=== PATIENT | male | born 1980 | race Caucasian/White ===

== ENCOUNTER 2018-05-23 15:30 | Inpatient (IN) | payer OTHER ==
[2018-05-23 16:41] VITALS: BMI 26.7
--- NOTE | 2018-05-23 17:44 | HP ---
COWS - Scale Resting Pulse: 0= IN 80 or Below Sweatin= Chills/Flushing Restless Observation: 1= Difficult to Sit Still Pupil Size: 1= Pupils >than Normal Bone or Joint Aches: 1= Mild Discomfort Runny Nose/ Eye Tearin= Nasal Congestion GI Upset > 30mins: 2= Nausea/Diarrhea Tremor Observation: 1= Tremor [place], Not Seen Yawning Observation: 1= 1-2x During Session Anxiety or Irritability: 1=Feels Anxious/Irritable Goose Flesh Skin: 3=Piloerection COWS Score: 13 CIWA Score - Admission Criteria [facility]ASAS Guidelines: Admission for Medically Managed Detox: Requires at least one of the followin. CIWA greater than 12 2. Seizures within the past 24 hours 3. Delirium tremens within the past 24 hours 4. Hallucinations within the past 24 hours 5. Acute intervention needed for co occurring medical disorder 6. Acute intervention needed for co occurring psychiatric disorder 7. Severe withdrawal that cannot be handled at a lower level of care (continued vomiting, continued diarrhea, abnormal vital signs) requiring intravenous medication and/or fluids 8. Admission ROS [facility] Chief Complaint: WITHDRAWAL SYMPTOMS Allergies/Adverse Reactions: Allergies Allergy/AdvReac Type Severity Reaction Status Date / Time No Known Drug Allergies Allergy Verified 09/09/11 16:58 History of Present Illness: 37 Y.O. MAN WITH HISTORY OF HEROIN DEPENDENCE IS HERE SEEKING DETOX SERVICES. HE REPORTED HE LAST COMPLETED DETOX AT [facility] 3 MONTHS AGO. DOES NOT HAVE AN EXTENSIVE PERIOD OF DRUG ABSTINENCE. PT. REPORTS HE IS MANDATED BY [facility] TO COMPLETE TREATMENT. Exam Limitations: No Limitations - Ebola screening Have you traveled outside of the country in the last 21 days: No (N) Have you had contact with anyone from an Ebola affected area: No Have you been sick,other than usual withdrawal symptoms: No Do you have a fever: No - Review of Systems Constitutional: Chills, Loss of Appetite, Changes in sleep, Unintentional Wgt. Loss EENT: reports: Blurred Vision, Tearing Respiratory: reports: No Symptoms reported Cardiac: reports: Lightheadedness GI: reports: Diarrhea, Abdominal cramping Musculoskeletal: reports: No Symptoms Reported Integumentary: reports: No Symptoms Reported Neuro: reports: No Symptoms reported Endocrine: reports: No Symptoms Reported Hematology: reports: No Symptoms Reported Psychiatric: reports: Judgement Intact, Mood/Affect Appropiate, other (BIPOLAR) Other Systems: Reviewed and Negative Patient History - Patient Medical History Hx Anemia: No Hx Asthma: No Hx Chronic Obstructive Pulmonary Disease (COPD): No Hx Cancer: No Hx Cardiac Disorders: No Hx Congestive Heart Failure: No Hx Hypertension: No Hx Hypercholesterolemia: No Hx Pacemaker: No HX Cerebrovascular Accident: No Hx Seizures: No Hx Dementia: No Hx Diabetes: No Hx Gastrointestinal Disorders: Yes (GERD ) Hx Liver Disease: No Hx Genitourinary Disorders: No Hx Sexually Transmitted Disorders: No Hx Renal Disease (ESRD): No Hx Thyroid Disease: No Hx Human Immunodeficiency Virus (HIV): No Hx Hepatitis C: No Hx Depression: Yes Hx Suicide Attempt: No Hx Bipolar Disorder: Yes Hx Schizophrenia: No - Patient Surgical History Past Surgical History: No Hx Neurologic Surgery: No Hx Cataract Extraction: No Hx Cardiac Surgery: No Hx Lung Surgery: No Hx Breast Surgery: No Hx Breast Biopsy: No Hx Abdominal Surgery: No Hx Appendectomy: No Hx Cholecystectomy: No Hx Genitourinary Surgery: No Hx Section: No Hx Orthopedic Surgery: No Anesthesia Reaction: No - PPD History Previous Implant?: Yes Documented Results: Negative w/o proof Implanted On Prior R Admission?: Yes Date: 09/11/11 PPD to be Administered?: Yes - Reproductive History Patient is a Female of Child Bearing Age (11 -55 yrs old): No - Smoking Cessation Smoking history: Current every day smoker Have you smoked in the past 12 months: Yes Aproximately how many cigarettes per day: 6 Hx Chewing Tobacco Use: No Initiated information on smoking cessation: Yes 'Breaking Loose' booklet given: 05/23/18 - Substance & Tx. History Hx Alcohol Use: No Hx Substance Use: Yes Substance Use Type: Heroin Hx Substance Use Treatment: Yes (DETOX: [facility] 01/2018) - Substances Abused Heroin Route: Injection Frequency: Daily Amount used: 10 BAGS Age of first use: 33 Date of Last Use: 05/23/18 Family Disease History - Family Disease History Family Disease History: Diabetes: Mother, Heart Disease: Mother Admission Physical Exam BHS - Vital Signs Vital Signs: Vital Signs - 24 hr 05/23/18 16:38 Temperature 97.9 F Pulse Rate 80 Respiratory 20 Rate Blood Pressure 140/82 - Physical General Appearance: Yes: Irritable, Anxious HEENTM: Yes: Hearing grossly Normal, Normocephalic, Normal Voice Respiratory: Yes: Chest Non-Tender, Lungs Clear, Normal Breath Sounds Neck: Yes: No masses,lesions,Nodules Breast: Yes: Breast Exam Deferred Cardiology: Yes: Regular Rhythm, Regular Rate Abdominal: Yes: Normal Bowel Sounds, Non Tender Genitourinary: Yes: Other (NO COMPLAINTS REPORTED) Back: Yes: Normal Inspection Musculoskeletal: Yes: full range of Motion, Gait Steady, Pelvis Stable Extremities: Yes: Normal Capillary Refill, Normal Inspection, Normal Range of Motion, Non-Tender Neurological: Yes: Alert, Normal Mood/Affect, Normal Response Integumentary: Yes: Normal Color, Dry, Warm, Track Ortiz Lymphatic: Yes: Within Normal Limits - Diagnostic (1) GERD (gastroesophageal reflux disease) Current Visit: Yes Status: Chronic (2) Uncomplicated opioid dependence Current Visit: Yes Status: Chronic (3) Nicotine dependence Current Visit: Yes Status: Chronic Cleared for Admission [facility] - Detox or Rehab [facility] Level of Care: Medically Managed Detox Regimen/Protocol: Methadone [facility] Breath Alcohol Content Breath Alcohol Content: 0 Urine Drug Screen - Results Drug Screen Negative: No Urine Drug Screen Results: THC-Marijuana, OPI-Opiates
[2018-05-23] MEDS ORDERED: guaiFENesin/D-METHORPHAN HB 10 ML UNIT-DOSE CUPS PO PRN (18:05)
[2018-05-23] MEDS ORDERED: METHADONE HCL 10 MG TABLET (FOR DETOX USE ONLY) PO ONE ×2 (18:05→23:00)
[2018-05-23] MEDS ORDERED: MAGNESIUM HYDROX 2400MG/30ML ORAL SUSPENSION 30 ML CUP PO PRN (18:05)
[2018-05-23] MEDS ORDERED: MAGNESIUM CITRATE 300 ML BOTTLE PO PRN (18:05)
[2018-05-23] MEDS ORDERED: LOPERAMIDE HCL 2 MG CAPSULE PO PRN (18:05)
[2018-05-23] MEDS ORDERED: MENTHOL/PHENOL 1 EACH UD MM PRN (18:05)
[2018-05-23] MEDS ORDERED: MAG HYDROX/AL HYDROX/SIMETH 30 ML UNIT-DOSE CUP PO PRN (18:05)
[2018-05-23] MEDS ORDERED: P-EPHED 60MG/TRIPROLIDI 2.5MG TABLET PO PRN (18:05)
[2018-05-23] MEDS ORDERED: hydrOXYzine PAMOATE 50 MG CAPSULE (FP) PO PRN (18:05)
[2018-05-23] MEDS ORDERED: MELATONIN 5 MG TABLETS PO PRN (22:00)
[2018-05-23] MEDS: THIAMINE HCL 100 MG TABLET (FP) PO SCH (22:14)
[2018-05-23] MEDS: diazePAM 5 MG TABLET PO PRN (22:20)
[2018-05-24] MEDS: IBUPROFEN 400 MG TABLET (FP) PO PRN ×2 (05:28→13:45)
[2018-05-24] MEDS: diazePAM 5 MG TABLET PO PRN ×4 (05:41→22:36)
[2018-05-24] MEDS: ACETAMINOPHEN 325 MG TABLET (FP) PO PRN ×2 (05:42→15:33)
--- NOTE | 2018-05-24 06:34 | PN ---
[facility] Progress Note Note: Patient complained of toothache Vital Signs Temperature 96.8 F L 05/24/18 06:11 Pulse Rate 61 05/24/18 06:11 Respiratory Rate 18 05/24/18 06:11 Blood Pressure 127/86 05/24/18 06:11 O2 Sat by Pulse Oximetry (%) Action:Ibuprofen 400mg stat ordered
[2018-05-24] MEDS ORDERED: IBUPROFEN 400 MG TABLET (FP) PO ONE ×2 (06:35→06:40)
[2018-05-24] MEDS ORDERED: LIDOCAINE VISCOUS 2% ORAL/TOP 20 ML UNIT-DOSE CUP MM PRN (09:54)
[2018-05-24] MEDS ORDERED: METHADONE HCL 10 MG TABLET (FOR DETOX USE ONLY) PO ONE (10:00)
[2018-05-24 10:07] LABS: HEMATOCRIT 42.2 % (35.4-49); HEMOGLOBIN 13.9 GM/dL (11.7-16.9); MCH 30.9 pg (25.7-33.7); MCHC 32.8 g/dl (32.0-35.9); MEAN CELL VOLUME 93.9 fl (80-96); MEAN PLT VOLUME 8.5 fl (7.5-11.1); PLATELET COUNT 299 K/MM3 (134-434); RDW 13.6 % (11.9-15.9); WHITE BLOOD COUNT 10.3 K/mm3 (4.0-10.0)
[2018-05-24] MEDS: PRENATAL VITAMINS W/ FOLIC ACID TABLET (FP) PO SCH (10:10)
[2018-05-24 11:24] LABS: ALBUMIN 3.8 g/dl (3.4-5.0); ALK PHOS 121 U/L (45-117); ANION GAP 7 MMOL/L (8-16); BILIRUBIN,TOTAL 0.4 mg/dL (0.2-1); BLOOD UREA NITROGEN 13 mg/dL (7-18); CALCIUM 8.4 mg/dL (8.5-10.1); CHLORIDE 103 mmol/L (98-107); CO2 30 mmol/L (21-32); GLUCOSE,RANDOM 75 mg/dL (74-106); POTASSIUM 3.7 mmol/L (3.5-5.1); SGOT/AST 21 U/L (15-37); SGPT/ALT 24 U/L (13-61); SODIUM 140 mmol/L (136-145); TOT PROT 7.1 g/dl (6.4-8.2)
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
--- NOTE | 2018-05-24 15:08 | PN ---
BHS COWS - Scale Resting Pulse: 0= [place] 80 or Below Sweatin= Chills/Flushing Restless Observation: 1= Difficult to Sit Still Pupil Size: 1= Pupils >than Normal Bone or Joint Aches: 1= Mild Discomfort Runny Nose/ Eye Tearin= Nasal Congestion GI Upset > 30mins: 1= Stomach Cramp Tremor Observation of Outstretched Hands: 1= Tremor [place], Not Seen Yawning Observation: 2= >3x During Session Anxiety or Irritability: 2=Irritable/Anxious Goose Flesh Skin: 0=Smooth Skin COWS Score: 11 BHS Progress Note (SOAP) Subjective: joints pain body aches tremor stuffy nose sweat c/o tooth ache tolerate fluid and regular food well Objective: 05/24/18 15:11 Vital Signs Temperature 98.5 F 05/24/18 13:39 Pulse Rate 78 05/24/18 13:39 Respiratory Rate 18 05/24/18 13:39 Blood Pressure 119/78 05/24/18 13:39 O2 Sat by Pulse Oximetry (%) 05/24/18 15:23 Laboratory Last Values WBC 10.3 K/mm3 (4.0-10.0) H 05/24/18 08:00 RBC 4.50 M/mm3 (4.00-5.60) 05/24/18 08:00 Hgb 13.9 GM/dL (11.7-16.9) 05/24/18 08:00 Hct 42.2 % (35.4-49) 05/24/18 08:00 MCV 93.9 fl (80-96) 05/24/18 08:00 MCH 30.9 pg (25.7-33.7) 05/24/18 08:00 MCHC 32.8 g/dl (32.0-35.9) 05/24/18 08:00 RDW 13.6 % (11.9-15.9) 05/24/18 08:00 Plt Count 299 K/MM3 (134-434) D 05/24/18 08:00 MPV 8.5 fl (7.5-11.1) 05/24/18 08:00 Sodium 140 mmol/L (136-145) 05/24/18 08:00 Potassium 3.7 mmol/L (3.5-5.1) 05/24/18 08:00 Chloride 103 mmol/L (98-107) 05/24/18 08:00 Carbon Dioxide 30 mmol/L (21-32) 05/24/18 08:00 Anion Gap 7 MMOL/L (8-16) L 05/24/18 08:00 BUN 13 mg/dL (7-18) 05/24/18 08:00 Creatinine 1.0 mg/dL (0.55-1.3) 05/24/18 08:00 Creat Clearance w eGFR > 60 (>60) 05/24/18 08:00 Random Glucose 75 mg/dL (74-106) 05/24/18 08:00 Calcium 8.4 mg/dL (8.5-10.1) L 05/24/18 08:00 Total Bilirubin 0.4 mg/dL (0.2-1) 05/24/18 08:00 AST 21 U/L (15-37) 05/24/18 08:00 ALT 24 U/L (13-61) 05/24/18 08:00 Alkaline Phosphatase 121 U/L (45-117) H 05/24/18 08:00 Total Protein 7.1 g/dl (6.4-8.2) 05/24/18 08:00 Albumin 3.8 g/dl (3.4-5.0) 05/24/18 08:00 RPR Titer Nonreactive (NONREACTIVE) 05/24/18 08:00 lab noted Assessment: 05/24/18 15:24 withdrawal sx Plan: continue detox
--- NOTE | 2018-05-24 18:57 | EKG ---
Test Reason : Blood Pressure : / mmHG Vent. Rate : 067 BPM Atrial Rate : 067 BPM P-R Int : 142 ms QRS Dur : 090 ms QT Int : 398 ms P-R-T Axes : 052 064 057 degrees QTc Int : 420 ms NORMAL SINUS RHYTHM NORMAL ECG NO PREVIOUS ECGS AVAILABLE Confirmed by MOSHE CHAMBERLAIN, EL ([id number]) on 05/24/2018 6:57:30 PM Referred By: Confirmed By:EL MESA MD
[2018-05-24] MEDS: THIAMINE HCL 100 MG TABLET (FP) PO SCH (22:36)
[2018-05-24] MEDS: QUEtiapine FUMARATE 100 MG TABLET (FP) PO SCH (22:36)
[2018-05-25] MEDS ORDERED: METHADONE HCL 5 MG TABLET (FOR DETOX USE ONLY) PO ONE (10:00)
[2018-05-25] MEDS: PRENATAL VITAMINS W/ FOLIC ACID TABLET (FP) PO SCH (10:14)
--- NOTE | 2018-05-25 12:43 | PN ---
BHS COWS - Scale Resting Pulse: 0= [place] 80 or Below Sweatin= Chills/Flushing Restless Observation: 0= Sits Still Pupil Size: 1= Pupils >than Normal Bone or Joint Aches: 1= Mild Discomfort Runny Nose/ Eye Tearin= Nasal Congestion GI Upset > 30mins: 1= Stomach Cramp Tremor Observation of Outstretched Hands: 2= Slight Tremor Visible Yawning Observation: 1= 1-2x During Session Anxiety or Irritability: 2=Irritable/Anxious Goose Flesh Skin: 0=Smooth Skin COWS Score: 10 BHS Progress Note (SOAP) Subjective: body aches muscle cramp restlessness tremor sweat hot and cold Objective: 05/25/18 12:44 Vital Signs Temperature 98.4 F 05/25/18 09:06 Pulse Rate 72 05/25/18 09:06 Respiratory Rate 18 05/25/18 09:06 Blood Pressure 99/68 05/25/18 09:06 O2 Sat by Pulse Oximetry (%) Laboratory Last Values WBC 10.3 K/mm3 (4.0-10.0) H 05/24/18 08:00 RBC 4.50 M/mm3 (4.00-5.60) 05/24/18 08:00 Hgb 13.9 GM/dL (11.7-16.9) 05/24/18 08:00 Hct 42.2 % (35.4-49) 05/24/18 08:00 MCV 93.9 fl (80-96) 05/24/18 08:00 MCH 30.9 pg (25.7-33.7) 05/24/18 08:00 MCHC 32.8 g/dl (32.0-35.9) 05/24/18 08:00 RDW 13.6 % (11.9-15.9) 05/24/18 08:00 Plt Count 299 K/MM3 (134-434) D 05/24/18 08:00 MPV 8.5 fl (7.5-11.1) 05/24/18 08:00 Sodium 140 mmol/L (136-145) 05/24/18 08:00 Potassium 3.7 mmol/L (3.5-5.1) 05/24/18 08:00 Chloride 103 mmol/L (98-107) 05/24/18 08:00 Carbon Dioxide 30 mmol/L (21-32) 05/24/18 08:00 Anion Gap 7 MMOL/L (8-16) L 05/24/18 08:00 BUN 13 mg/dL (7-18) 05/24/18 08:00 Creatinine 1.0 mg/dL (0.55-1.3) 05/24/18 08:00 Creat Clearance w eGFR > 60 (>60) 05/24/18 08:00 Random Glucose 75 mg/dL (74-106) 05/24/18 08:00 Calcium 8.4 mg/dL (8.5-10.1) L 05/24/18 08:00 Total Bilirubin 0.4 mg/dL (0.2-1) 05/24/18 08:00 AST 21 U/L (15-37) 05/24/18 08:00 ALT 24 U/L (13-61) 05/24/18 08:00 Alkaline Phosphatase 121 U/L (45-117) H 05/24/18 08:00 Total Protein 7.1 g/dl (6.4-8.2) 05/24/18 08:00 Albumin 3.8 g/dl (3.4-5.0) 05/24/18 08:00 RPR Titer Nonreactive (NONREACTIVE) 05/24/18 08:00 lab noted Assessment: 05/25/18 12:45 withdrawal sx Plan: continue detox
[2018-05-25] MEDS: IBUPROFEN 400 MG TABLET (FP) PO PRN (15:01)
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
[2018-05-25 17:23] LABS: URINE APPEARANCE SLCLOUDY; URINE BILIRUBIN NEGATIVE (<2.0 mg/dL); URINE COLOR AMBER; URINE GLUCOSE (UA) NEGATIVE (NEGATIVE); URINE KETONE NEGATIVE (NEGATIVE); URINE LEUK ESTERASE NEGATIVE (NEGATIVE); URINE NITRITE NEGATIVE (NEGATIVE); URINE PROTEIN NEGATIVE (NEGATIVE); URINE UROBILINOGEN NEGATIVE mg/dL (0.2-1.0)
[2018-05-25] MEDS: BACITRACIN 0.9 GM PACKET TP SCH (17:28)
[2018-05-25] MEDS: diazePAM 5 MG TABLET PO PRN ×2 (17:29→22:37)
[2018-05-25] MEDS: QUEtiapine FUMARATE 100 MG TABLET (FP) PO SCH (22:37)
[2018-05-25] MEDS: THIAMINE HCL 100 MG TABLET (FP) PO SCH (22:38)
[2018-05-26] MEDS ORDERED: METHADONE HCL 5 MG TABLET (FOR DETOX USE ONLY) PO ONE (10:00)
[2018-05-26] MEDS: PRENATAL VITAMINS W/ FOLIC ACID TABLET (FP) PO SCH (10:18)
[2018-05-26] MEDS: BACITRACIN 0.9 GM PACKET TP SCH (10:18)
[2018-05-26] MEDS: diazePAM 5 MG TABLET PO PRN (10:18)
[2018-05-26] MEDS: IBUPROFEN 400 MG TABLET (FP) PO PRN (12:22)
--- NOTE | 2018-05-26 13:57 | PN ---
[facility] Progress Note Note: PATIENT CONTINUES WITH DETOX REGIMEN. PATIENT IS ALERT AND ORIENTED X 3. IN NAD. PATIENT C/O INTERRUPTED SLEEP, ANXIETY AND RESTLESSNESS. DENIES N/V/D AND SWEATING. Vital Signs Temperature 96.9 F L 05/26/18 09:36 Pulse Rate 72 05/26/18 09:36 Respiratory Rate 16 05/26/18 09:36 Blood Pressure 107/78 05/26/18 09:36 O2 Sat by Pulse Oximetry (%) Laboratory Tests 05/24/18 05/24/18 05/24/18 08:00 08:00 08:00 WBC 10.3 H RBC 4.50 Hgb 13.9 Hct 42.2 MCV 93.9 MCH 30.9 MCHC 32.8 RDW 13.6 Plt Count 299 D MPV 8.5 Sodium 140 Potassium 3.7 Chloride 103 Carbon Dioxide 30 Anion Gap 7 L BUN 13 Creatinine 1.0 Creat Clearance w eGFR > 60 Random Glucose 75 Calcium 8.4 L Total Bilirubin 0.4 AST 21 ALT 24 Alkaline Phosphatase 121 H Total Protein 7.1 Albumin 3.8 Urine Color Urine Appearance Urine pH Ur Specific [place] Urine Protein Urine Glucose (UA) Urine Ketones Urine Blood Urine Nitrite Urine Bilirubin Urine Urobilinogen Ur Leukocyte Esterase RPR Titer Nonreactive 05/25/18 13:07 WBC RBC Hgb Hct MCV MCH MCHC RDW Plt Count MPV Sodium Potassium Chloride Carbon Dioxide Anion Gap BUN Creatinine Creat Clearance w eGFR Random Glucose Calcium Total Bilirubin AST ALT Alkaline Phosphatase Total Protein Albumin Urine Color [place] Urine Appearance Slcloudy Urine pH 6.0 Ur Specific [place] 1.019 Urine Protein Negative Urine Glucose (UA) Negative Urine Ketones Negative Urine Blood Negative Urine Nitrite Negative Urine Bilirubin Negative Urine Urobilinogen Negative Ur Leukocyte Esterase Negative RPR Titer PE: ALERT AND ORIENTED X 3 SKIN WARM AND DRY CAR S1S2 RESP CTA BL EXT NO VISIBLE TREMORS, FULL ROM, AMB AD SACHA PACING IN HALLWAY A/P WITHDRAWAL SX CONTINUE DETOX ENCOURAGE ORAL FLUIDS CONTINUE TO MONITOR
[2018-05-26 19:10] VITALS: BP 113/69; PULSE 71; TEMP 96.7
[2018-05-27] MEDS ORDERED: METHADONE HCL 10 MG TABLET (FOR DETOX USE ONLY) PO ONE (10:00)
[2018-05-28] MEDS ORDERED: METHADONE HCL 5 MG TABLET (FOR DETOX USE ONLY) PO ONE (06:00)
== END 2018-05-26 19:15 | disposition left against medical advice (07) | DRG 770 ==
LOC: YASAS 15:30 → Y3N 19:13
PROC: HZ2ZZZZ Detoxification Services for Substance Abuse Treatment (ICD-10-PCS; principal; 2018-05-23)
DX: F11.23 Opioid dependence with withdrawal (principal); F12.10 Cannabis abuse, uncomplicated; F17.213 Nicotine dependence, cigarettes, with withdrawal; G47.00 Insomnia, unspecified; K08.89 Other specified disorders of teeth and supporting structures; K21.9 Gastro-esophageal reflux disease without esophagitis; M25.511 Pain in right shoulder; S60.511A Abrasion of right hand, initial encounter; Y04.0XXA Assault by unarmed brawl or fight, initial encounter; Y93.9 Activity, unspecified; Y92.239 Unspecified place in hospital as the place of occurrence of the external cause; Z59.0 Homelessness
CPT/HCPCS: 36415; 80053; 81003; 85027; 86593; 93005; 93010